=== PATIENT | male | born 1980 | race Caucasian/White ===

== ENCOUNTER 2017-06-27 02:50 | Inpatient (IN) | payer BC, SELFPAY ==
[2017-06-27] MEDS ORDERED: NA CHLORIDE 0.9% 1,000 ML ONE (03:22)
[2017-06-27] MEDS ORDERED: ONDANSETRON 4 MG/2 ML VIAL ONE (03:22)
[2017-06-27 03:48] LABS: Urine Blood NEGATIVE (NEG); Urine Glucose NEGATIVE (NEG); Urine Protein NEGATIVE (NEG)
[2017-06-27 03:50] LABS: Absolute Lymphocytes (CBC) 1.1 K/uL (0.7-4.9); Absolute Monocytes 0.8 K/uL (0.1-1.3); Absolute Neutrophil 14.6 K/uL (1.8-8.0); Basophils % 0.4 % (0-1.3); Eosinophils % 0.1 % (0-4.4); Hematocrit 43.7 % (39.6-49.0); Lymphocytes % 6.5 % (15.3-44.8); MCH 29.6 pg (27.0-35.0); MCV 89.5 fL (80-100); MPV 9.1 fL (7.6-11.3); Monocytes % 4.9 % (3.3-12.3); RBC Red Blood Cell Count 4.88 M/uL (4.33-5.43)
[2017-06-27 03:54] LABS: Bicarbonate 27 mEq/L (21-31); Glucose Level 133 mg/dL (65-120); Lipase 20 U/L (22-51); Potassium 4.2 mEq/L (3.6-5.0); Sodium Level 137 mEq/L (135-145)
[2017-06-27 03:56] LABS: Urine Bacteria <20 /HPF (NONE SEEN); Urine Culture Reflex Order NOT NEEDED; Urine RBC NONE SEEN /HPF (NONE SEEN)
[2017-06-27 04:00] LABS: ALT/SGPT 29 IU/L (10-60); AST/SGOT 24 IU/L (10-42); Albumin 4.6 g/dL (3.2-5.5); Alkaline Phosphatase 49 IU/L (42-121); Amylase Level 29 U/L (28-100); BUN Blood Urea Nitrogen 13 mg/dL (6-20); Bilirubin Direct < 0.1 mg/dL (0-0.2); Bilirubin Total 0.6 mg/dL (0.3-1.2); Protein, Total 7.3 g/dL (6.0-8.3)
[2017-06-27 05:24] LABS: Blood Morphology Comment NOT SEEN (NOT SEEN); Platelet Estimate ADEQ; Urine White Blood Cell Casts OK
--- NOTE | 2017-06-27 05:35 | EDPHYS ---
Physician Documentation [facility] Name: Reece Oreilly Age: 36 yrs Sex: Male : 1980 Arrival Date: 06/27/2017 Time: 02:55 Bed 14 Private MD: Brooke Donnelly K ED Physician Cj Griffith HPI: 06/27 05:43 This 36 yrs old Male presents to ER via Ambulatory with complaints of tw4 Abdominal Pain, Vomiting. 05:43 The patient presents to the emergency department with nausea, vomiting, abdominal pain. tw4 Onset: The symptoms/episode began/occurred yesterday. Possible causes: unknown. The symptoms are aggravated by nothing. The symptoms are alleviated by nothing. Associated signs and symptoms: The patient has no apparent associated signs or symptoms. Severity of symptoms: At their worst the symptoms were moderate in the emergency department the symptoms are unchanged. The patient has not experienced similar symptoms in the past. Historical: - Allergies: 03:03 No Known Allergies; ak1 - Home Meds: 03:03 None [Active]; ak1 - PMHx: 03:03 None; ak1 - PSHx: 03:03 None; ak1 - Immunization history:: Adult Immunizations unknown. - Social history:: Smoking status: Patient/guardian denies using tobacco. ROS: 05:43 Constitutional: Negative for fever, chills, and weight loss, Cardiovascular: Negative tw4 for chest pain, palpitations, and edema, Respiratory: Negative for shortness of breath, cough, wheezing, and pleuritic chest pain, Back: Negative for injury and pain, MS/Extremity: Negative for injury and deformity. 05:43 Abdomen/GI: Positive for abdominal pain, nausea and vomiting, Negative for abdominal cramps, abdominal distension, black/tarry stool, rectal pain, rectal bleeding. Exam: 05:43 Constitutional: This is a well developed, well nourished patient who is awake, alert, tw4 and in no acute distress. Head/Face: Normocephalic, atraumatic. Chest/axilla: Normal chest wall appearance and motion. Nontender with no deformity. No lesions are appreciated. Cardiovascular: Regular rate and rhythm with a normal S1 and S2. No gallops, murmurs, or rubs. Normal PMI, no JVD. No pulse deficits. Respiratory: Lungs have equal breath sounds bilaterally, clear to auscultation and percussion. No rales, rhonchi or wheezes noted. No increased work of breathing, no retractions or nasal flaring. Back: No spinal tenderness. No costovertebral tenderness. Full range of motion. 05:43 MS/ Extremity: Pulses equal, no cyanosis. Neurovascular intact. Full, normal range of motion. Neuro: Awake and alert, GCS 15, oriented to person, place, time, and situation. Cranial nerves II-XII grossly intact. Motor strength 5/5 in all extremities. Sensory grossly intact. Cerebellar exam normal. Normal gait. 05:43 Abdomen/GI: Inspection: abdomen appears normal, Bowel sounds: normal, Palpation: moderate abdominal tenderness, in the right lower quadrant. Vital Signs: 03:03 BP 138 / 84; Pulse 98; Resp 18; Temp 98.1(O); Pulse Ox 99% on R/A; Weight 99.79 kg (R); ak1 Height 5 ft. 11 in. (180.34 cm) (R); Pain 8/10; 04:15 BP 131 / 83; Pulse 80; Resp 15; Pulse Ox 98% on R/A; bs1 05:00 BP 126 / 77; Pulse 79; Resp 16; Pulse Ox 100% on R/A; bs1 06:00 BP 130 / 91; Pulse 72; Resp 15 S; Pulse Ox 98% on R/A; bs1 06:15 BP 128 / 81; Pulse 71; Resp 14; Pulse Ox 97% on R/A; bs1 06:49 BP 127 / 88; Pulse 66; Resp 15; Pulse Ox 97% on R/A; bs1 07:33 BP 111 / 62; Pulse 72; Resp 16; Pulse Ox 98% on R/A; Pain 0/10; rb1 03:03 Body Mass Index 30.68 (99.79 kg, 180.34 cm) ak1 MDM: 02:59 Patient medically screened. tw4 05:44 Differential diagnosis: Nonspecific abd pain, gastritis, appendicitis, diverticulitis, tw4 viral gastroenteritis. Data reviewed: vital signs, nurses notes. Data interpreted: Pulse oximetry: Interpretation: normal. Counseling: I had a detailed discussion with the patient and/or guardian regarding: the historical points, exam findings, and any diagnostic results supporting the discharge/admit diagnosis. Physician consultation: Kirt Jacobs MD was contacted at 05:35, regarding admission, patient's condition, need to evaluate the patient as soon as possible, and will see patient in inpatient room, later today. Admission orders: after a detailed discussion of the patient's condition and case, the admit orders are written by me. 06/27 02:59 Order name: Amylase, Serum; Complete Time: 05:32 tw 06/27 02:59 Order name: Basic Metabolic Panel; Complete Time: 05:32 [facility] 06/27 05:32 Interpretation: GLUC 133. 06/27 02:59 Order name: CBC with Diff; Complete Time: 05:32 tw 06/27 05:33 Interpretation: Normal except: WBC 16.6; VAISHALI% 88.1; MPV 9.1; LYM% 6.5; NEUT A 14.6. 06/27 02:59 Order name: Creatinine for Radiology; Complete Time: 05:32 tw 06/27 02:59 Order name: Hepatic Function; Complete Time: 05:32 [facility] 06/27 02:59 Order name: Lipase; Complete Time: 05:32 [facility] 06/27 02:59 Order name: Urine Microscopic Only; Complete Time: 05:32 tw 06/27 02:59 Order name: IV Saline Lock; Complete Time: 03:30 [facility] 06/27 03:43 Order name: CT Abd/Pelvis - W/Contrast 06/27 03:43 Order name: Urine Dipstick--Ancillary (enter results); Complete Time: 05:32 dc 06/27 05:25 Order name: CBC Smear Scan; Complete Time: 05:32 EDMD 06/27 05:48 Order name: NPO; Complete Time: 06:48 [facility] 06/27 02:59 Order name: Labs collected and sent; Complete Time: 03:30 tw4 06/27 02:59 Order name: Urine Dipstick-Ancillary (obtain specimen); Complete Time: 03:30 tw4 Administered Medications: 03:29 Drug: Zofran 4 mg Route: IVP; Site: right antecubital; bs1 06:22 Follow up: Response: No adverse reaction bs1 03:29 Drug: NS 0.9% 1000 ml Route: IV; Rate: 1 bolus; Site: right antecubital; bs1 06:22 Follow up: IV Status: Completed infusion bs1 Disposition: 06/27/17 05:34 Hospitalization ordered by Kirt Jacobs for Inpatient Admission. Preliminary diagnosis is Acute appendicitis with localized peritonitis. - Bed requested for Telemetry/MedSurg (Inpatient). - Status is Inpatient Admission. rb1 - Condition is Stable. - Problem is new. - Symptoms are unchanged. UTI on Admission? No Signatures: Dispatcher [employer] EDMS Meenu Ramirez RN RN Debbie Linton RN RN ak1 Uyen Louis, RN RN rb1 Tabatha Richardson, RN RN bs1 Cj Griffith MD MD tw4 Corrections: (The following items were deleted from the chart) 05:33 05:33 Normal except: WBC 16.6. tw4 tw4 05:44 05:34 Hospitalization Ordered by Kirt Jacobs MD for Inpatient Admission. Preliminary diagnosis is Acute appendicitis with localized peritonitis. Bed requested for Telemetry/MedSurg (Inpatient). Status is Inpatient Admission. Condition is Stable. Problem is new. Symptoms are unchanged. UTI on Admission? No. tw4 07:56 05:44 06/27/2017 05:34 Hospitalization Ordered by Kirt Jacobs MD for Inpatient rb1 Admission. Preliminary diagnosis is Acute appendicitis with localized peritonitis. Bed requested for Telemetry/MedSurg (Inpatient). Status is Inpatient Admission. Condition is Stable. Problem is new. Symptoms are unchanged. UTI on Admission? No. mw
--- NOTE | 2017-06-27 05:35 | ER ---
Nurse's Notes [facility] Name: Reece Oreilly Age: 36 yrs Sex: Male : 1980 Arrival Date: 06/27/2017 Time: 02:55 Bed 14 Private MD: Brooke Donnelly K Diagnosis: Acute appendicitis with localized peritonitis Presentation: 06/27 03:02 Presenting complaint: Patient states: right upper abd pain since 2100. pt vomited X1 at ak1 0230. pt last BM 0230. pt denies diarrhea. Transition of care: patient was not received from another setting of care. Onset of symptoms was June 27, 2017. Initial Sepsis Screen: Does the patient meet any 2 criteria? No. Patient's initial sepsis screen is negative. Does the patient have a suspected source of infection? No. Patient's initial sepsis screen is negative. Care prior to arrival: None. 03:02 Method Of Arrival: Ambulatory ak1 03:02 Acuity: DONNY 3 ak1 Triage Assessment: 03:03 General: Appears uncomfortable, Behavior is calm, cooperative. Pain: Complains of pain ak1 in abdomen. EENT: No signs and/or symptoms were reported regarding the EENT system. Neuro: No deficits noted. Cardiovascular: No deficits noted. Respiratory: No deficits noted. GI: Reports upper abdominal pain, nausea, vomiting. : No signs and/or symptoms were reported regarding the genitourinary system. Derm: No signs and/or symptoms reported regarding the dermatologic system. Musculoskeletal: No signs and/or symptoms reported regarding the musculoskeletal system. Historical: - Allergies: 03:03 No Known Allergies; ak1 - Home Meds: 03:03 None [Active]; ak1 - PMHx: 03:03 None; ak1 - PSHx: 03:03 None; ak1 - Immunization history:: Adult Immunizations unknown. - Social history:: Smoking status: Patient/guardian denies using tobacco. Screenin:04 Abuse screen: Denies threats or abuse. Has been threatened or abused. Nutritional ak1 screening: No deficits noted. Tuberculosis screening: No symptoms or risk factors identified. Fall Risk None identified. Assessment: 03:05 General: Appears in no apparent distress. uncomfortable, Behavior is calm, cooperative, bs1 appropriate for age. Pain: Complains of pain in right upper/lower abdomen. Neuro: Level of Consciousness is awake, alert, obeys commands, Oriented to person, place, time, situation, Appropriate for age. Cardiovascular: Denies chest pain, palpitations, shortness of breath, Heart tones S1 S2 present Capillary refill < 3 seconds Patient's skin is warm and dry. Respiratory: Airway is patent Trachea midline Respiratory effort is even, unlabored, Respiratory pattern is regular, symmetrical, Breath sounds are clear bilaterally. GI: Abdomen is round Bowel sounds present X 4 quads. Abdomen is tender to palpation in right upper quadrant and right lower quadrant Reports lower abdominal pain, upper abdominal pain, nausea, vomiting, Patient currently denies diarrhea, rectal bleeding. : No deficits noted. No signs and/or symptoms were reported regarding the genitourinary system. EENT: No deficits noted. No signs and/or symptoms were reported regarding the EENT system. Derm: Skin is intact, Skin is pink, warm \T\ dry. Musculoskeletal: Circulation, motion, and sensation intact. Capillary refill < 3 seconds, Range of motion: intact in all extremities. 04:00 Reassessment: No changes from previously documented assessment. Patient and/or family bs1 updated on plan of care and expected duration. Pain level reassessed. Patient is alert, oriented x 3, equal unlabored respirations, skin warm/dry/pink. 05:15 Reassessment: Patient appears in no apparent distress at this time. Patient and/or bs1 family updated on plan of care and expected duration. Pain level reassessed. Patient is alert, oriented x 3, equal unlabored respirations, skin warm/dry/pink. Patient states symptoms have improved. 06:21 Reassessment: Patient appears in no apparent distress at this time. Patient and/or bs1 family updated on plan of care and expected duration. Pain level reassessed. Patient is alert, oriented x 3, equal unlabored respirations, skin warm/dry/pink. 06:59 Reassessment: Report given to MAMTA Qiu. bs1 07:00 General: Appears in no apparent distress. comfortable. Pain: Denies pain. Neuro: Level rb1 of Consciousness is awake, alert, obeys commands, Oriented to person, place, time, situation. Cardiovascular: Capillary refill < 3 seconds is brisk in bilateral fingers. Respiratory: Airway is patent Respiratory effort is even, unlabored, Respiratory pattern is regular, symmetrical. Derm: Skin is pink, warm \T\ dry. Musculoskeletal: Range of motion: intact in all extremities. 07:37 Reassessment: Called report to MAMTA Thorpe. Information from the SBAR was given. All rb1 questions asked and answered. Vital Signs: 03:03 BP 138 / 84; Pulse 98; Resp 18; Temp 98.1(O); Pulse Ox 99% on R/A; Weight 99.79 kg (R); ak1 Height 5 ft. 11 in. (180.34 cm) (R); Pain 8/10; 04:15 BP 131 / 83; Pulse 80; Resp 15; Pulse Ox 98% on R/A; bs1 05:00 BP 126 / 77; Pulse 79; Resp 16; Pulse Ox 100% on R/A; bs1 06:00 BP 130 / 91; Pulse 72; Resp 15 S; Pulse Ox 98% on R/A; bs1 06:15 BP 128 / 81; Pulse 71; Resp 14; Pulse Ox 97% on R/A; bs1 06:49 BP 127 / 88; Pulse 66; Resp 15; Pulse Ox 97% on R/A; bs1 07:33 BP 111 / 62; Pulse 72; Resp 16; Pulse Ox 98% on R/A; Pain 0/10; rb1 03:03 Body Mass Index 30.68 (99.79 kg, 180.34 cm) ak1 ED Course: 02:55 Patient arrived in ED. es 02:55 Brooke Donnelly MD is Private Physician. es 02:59 Cj Griffith MD is Attending Physician. tw4 03:03 Triage completed. ak1 03:03 Arm band placed on Patient placed in an exam room, on a stretcher, on pulse oximetry, ak1 Patient notified of wait time. 03:05 Patient has correct armband on for positive identification. Bed in low position. Call ak1 light in reach. Side rails up X 1. Adult w/ patient. Pulse ox on. NIBP on. 03:13 Tabatha Richardson RN is Primary Nurse. bs1 03:15 Inserted saline lock: 20 gauge in right antecubital area, using aseptic technique. bs1 03:15 No provider procedures requiring assistance completed. bs1 04:[address] via wheelchair. 04:21 CT completed. Patient tolerated procedure well. Patient moved back from CT. 04:21 CT Abd/Pelvis - W/Contrast In Process Unspecified. EDWY 05:33 Kirt Jacobs MD is Hospitalizing Provider. tw4 07:40 No provider procedures requiring assistance completed. Patient admitted, IV remains in rb1 place. Administered Medications: 03:29 Drug: Zofran 4 mg Route: IVP; Site: right antecubital; bs1 06:22 Follow up: Response: No adverse reaction bs1 03:29 Drug: NS 0.9% 1000 ml Route: IV; Rate: 1 bolus; Site: right antecubital; bs1 06:22 Follow up: IV Status: Completed infusion bs1 Outcome: 05:34 Decision to Hospitalize by Provider. tw4 07:40 Admitted to Med/surg accompanied by nurse, family with patient, via wheelchair, room rb1 208, with chart, Report called to MAMTA Thorpe 07:40 Condition: stable 07:40 Instructed on the need for admit. 07:40 Patient left the ED. rb1 Signatures: Dispatcher [employer] EDWY Natalia Valentine Ervin Debbie Linton RN RN ak1 Uyen Louis, RN RN rb1 Tabatha Richardson RN RN bs1 Cj Griffith MD MD tw4 Corrections: (The following items were deleted from the chart) 07:57 07:56 Patient left the ED. rb1 rb1
--- NOTE | 2017-06-27 07:01 | RAD REPORT ---
EXAM DESCRIPTION: CT - Abdomen Pelvis W Contrast - 06/27/2017 6:30 am CLINICAL HISTORY: Right upper quadrant pain, abdominal pain, vomiting A preliminary written report was provided at the time of the study, and the report was reviewed prio r to final dictation. COMPARISON: None. TECHNIQUE: Biphasic, helical CT imaging of the abdomen and pelvis was performed following 100 ml non -ionic IV contrast. No oral contrast was given. All CT scans are performed using dose optimization technique as appropriate and may include automated exposure control or mA/KV adjustment according to patient size. FINDINGS: No suspicious findings in the lung bases. The liver, spleen, and pancreas show no suspicious findings. Gallbladder and biliary tree are also wi thout suspicious finding. Symmetric renal function is seen with no hydronephrosis or suspicious renal mass. No pyelonephritis o r acute renal parenchymal process. Urinary bladder, prostate gland and seminal vesicles within normal range. Punctate nonobstructing calculus on the right. No gastric dilatation or gastric wall thickening. No acute small bowel finding. Few diverticula are s een. Moderate stool volume in the right-side and transverse colon. An active process of the colon is not identified. The appendix is 09-2010 mm in maximum dimension. No appendicolith. There is a trace amount of strandi ng in the periappendiceal fat. The appendix is retrocecal extending along the medial inferior margin of the liver. No evidence for perforation, extravasation or other surgically complicating factor. No free air, free fluid, pneumatosis or other site of inflammatory stranding. No mass or bulky lymph adenopathy. A small fat only umbilical hernia present. No adrenal abnormality. No suspicious bony findings. IMPRESSION: Mild acute appendicitis. No perforation, abscess or other complicating factor. Appendix is retrocecal. Tip is along the medial inferior margin right lobe of the liver.
[2017-06-27] MEDS ORDERED: FENTANYL CITR 100 MCG/2 ML ONE (10:06)
[2017-06-27] MEDS ORDERED: PROPOFOL 200 MG/20 ML VIAL IV ONE (10:06)
[2017-06-27] MEDS ORDERED: MIDAZOLAM HCL 2 MG/2 ML INJ ONE (10:06)
[2017-06-27] MEDS ORDERED: ROCURONIUM 50 MG/5 ML VIAL IV ONE (10:06)
[2017-06-27] MEDS ORDERED: ONDANSETRON HCL 40 MG/20 ML VIAL ONE (10:07)
[2017-06-27] MEDS ORDERED: FENTANYL CITR 250 MCG/5 ML ONE (10:08)
[2017-06-27] MEDS ORDERED: Ringers Lactate 1,000 ML IV ONE (10:09)
[2017-06-27] MEDS ORDERED: LIDOCAINE 2% INJ, MPF 2 ML 1 ML ONE (10:18)
[2017-06-27] MEDS ORDERED: Levofloxacin 750mg IV 750 MG/150 ML BAG IV ONE (10:20)
[2017-06-27] MEDS ORDERED: GLYCOPYRROLATE 0.2 MG/ML SYR ONE (11:24)
[2017-06-27] MEDS ORDERED: NEOSTIGMINE 1 MG/ML -5 ML SYRINGE ONE (11:24)
[2017-06-27] MEDS ORDERED: BUPIVACAINE 0.5% PF 10 ML VIAL SQ ONE (11:30)
[2017-06-27] MEDS: MEPERIDINE HCL 25 MG/0.5 ML ONE ×2 (11:44→11:49)
[2017-06-27] MEDS ORDERED: HYDROCODONE/APAP 7.5/325 MG TAB PO PRN (12:01)
[2017-06-27] MEDS ORDERED: Morphine 2 MG/2 ML SYR IV PRN (12:01)
[2017-06-27] MEDS ORDERED: MEPERIDINE HCL 25 MG/0.5 ML ONE (12:03)
[2017-06-27] MEDS ORDERED: CIPROFLOXACIN 400mg IV 400 MG/200 ML BAG IV SCH (21:00)
--- NOTE | 2017-06-27 22:04 | HP ---
Date of Admission: 06/27/2017 Diagnosis: Acute appendicitis. Indication For Procedure: This is the case of a 36-year-old patient, comes to us with periumbilical right lower quadrant pain, associated with nausea and vomiting since early this morning. The patient decided to come to the ER. The patient denies any dysuria, hematuria, hematochezia, or melena. Den ies any recent traveling out of the country. Denies any family member sick at home. Past Medical History: None. Allergies: NONE. Past Surgical History: None. Social History: He does smoke. He does drink alcohol. Family History: Unremarkable. Review of Systems: Constitutional: The patient has a low grade fever. No chills. Respiratory: Denies any shortness of breath. Gastrointestinal: As above. Genitourinary: Denies any dysuria or hematuria. The patient is awake and alert. HEENT: Pupils are equal and reactive, anicteric. Neck: Supple. Chest: Clear. Abdomen: Soft with right lower quadrant tenderness, guarding, or rebound. Rovsing sign positive. P soas signs positive. Rectal: Deferred. Breasts: Deferred. Genitalia: Deferred. Extremities: Good capillary refill. Laboratory Data: Blood work shows WBC count of 16 with hemoglobin of 14.5 and creatinine is 0.77, po tassium is 4.2. Imaging: CAT scan of abdomen and pelvis, interpreted by Dr. Thomas as acute appendicitis. Assessment And Plan: This is a 36-year-old patient with acute appendicitis, laparoscopic versus open appendectomy, fully explained to the patient with benefits, alternatives, and risks including, but n ot limited to infection, bleeding, damage to adjacent structures, anesthesia complication, abscess, m yocardial infarction, even . He also understands this may not relieve the symptoms. He might n eed more than one surgical intervention. He understood and signed a consent. OR was immediately tigre led. SAMANTHA/ADRIENNE Voice ID: [id number]
--- NOTE | 2017-06-28 01:04 | OP ---
Date of Procedure: 06/27/2017 Surgeon: Kirt Jacobs MD Bleach Maker: FRANCHESCA Valdez. Preoperative Diagnosis: Acute appendicitis. Postoperative Diagnoses: Acute appendicitis, incarcerated umbilical hernia. Procedures: 1.Laparoscopic appendectomy. 2.Open repair of incarcerated umbilical hernia. Findings: The patient have a retrocecal appendix going into the right upper quadrant of abdomen next to the liver. The appendix have to be dissected and cecum have to be mobilized in order for us to g et that retrocecal appendix. Complications: None. Indications: This is a case of a 36-year-old patient who comes to us with right abdominal pain and d iagnosed with acute appendicitis. The benefits, alternatives, and risks of laparoscopic, possible op en appendectomy fully explained to the patient, which include but are not limited to infection, bleed ing, damage to adjacent structures, anesthesia complication, abscess, CA, and even . He also un derstands this may not relieve the symptoms. He might need more than one surgical intervention. He understood. Signed a consent. Description Of Procedure: The patient was brought to the operating room, placed in supine position. Anesthesia was done without complication. Abdominal area was prepped and draped in a sterile fashio n. Marcaine 0.5% was injected for local anesthetic, followed by sharp incision of skin in the infrau mbilical region. Incision was carried down until we found the patient to have an umbilical hernia wi th incarceration, so hernia sac was removed from the umbilical skin, opened. The omentum was found i n that area, was reduced back into the abdominal cavity. The hernia sac was removed. The fascia edg es were cleaned. At that moment, I placed Vicryl #1 inside the fascia. Brittany trocar was carefully introduced. No bleeding was obtained. At that moment, I placed 2 more trocars, 5 mm each one of the m under direct visualization in the suprapubic and left lower quadrant. We noticed this patient to h ave high riding cecum and on top of that one is a retrocecal appendix. So, using a Harmonic Scalpel, we proceeded to mobilize the cecum. This allowed us access to the appendix, which usually goes deep about appendix goes almost next to the liver. We were able to carefully visualize that, preserve th e ureters, preserve the duodenum. Remove the appendix. Get the mesoappendix ligated with the help o f a LigaSure. No bleeding. The window was created in the base of the appendix, transected that with an Endo JANELLE 45 mm 2.5. Appendix removed from abdominal cavity using EndoCatch through the umbilical incision. The area was inspected once again. No bleeding. No bowel leak. The cecum was back to n ormal place. Omentum was placed over the area. Irrigation was done. Suction was done. We inspect the area once again. No bleeding. No bowel content. At that moment, I proceeded to remove the troc ars under direct vision. Deflated pneumoperitoneum. Closed the umbilical hernia with #1 Vicryl. Ir rigated subcutaneous tissue, closed that with 3-0 chromic and skin with isaias. Sponge count and in strument counts were correct. The patient tolerated the procedure well. [facility]. Postoperative Plan: If the patient can tolerate full diet, he has the option he will be discharged h ome today or tomorrow depends on the pain control and clinically how he does. If he gets home today, he was explained the importance of no heavy lifting. Follow up in my office in 1 week. Call for ap pointment [phone]. The importance also taking Cipro 500 p.o. q.12 and Tylenol No. 3 q.4 hours p.r.n . pain. SAMANTHA/ADRIENNE Voice ID: [id number] Report ID: [id number]
== END 2017-06-27 18:45 | disposition home or self-care (01) | DRG 342 ==
LOC: ER 02:50 → ERHOLD 05:46 → 2ND 06:23
PROVIDERS: ADMIT Surgery; ATTEND Surgery
PROC: 0WQF0ZZ Repair Abdominal Wall, Open Approach (ICD-10-PCS; principal; 2017-06-27 11:00)
PROC: 0DTJ4ZZ Resection of Appendix, Percutaneous Endoscopic Approach (ICD-10-PCS; 2017-06-27 11:00)
DX: K35.80 Unspecified acute appendicitis (principal); K42.0 Umbilical hernia with obstruction, without gangrene
CPT/HCPCS: 36415; 74177; 80048; 80076; 81003; 81015; 82150; 83690; 85025; 88302; 88304; 96361; 96374; 99285; J2175; J2250; J2270; J2405; J2710; J3010; J3490; J7030; Q9967